=== PATIENT | male | born 1995 | race African-American/Black ===

== ENCOUNTER 2023-03-10 18:53 | Emergency (ER) | payer SELFPAY ==
[~2023-03-10] VITALS: Ht 180.3 cm; Wt 130.0 kg
[2023-03-10 19:15] VITALS: BP 155/80; PULSE 97; RESP 20; TEMP 99.2; O2SAT 98
[2023-03-10] MEDS ORDERED: CLIN300C70 PO ×3 (21:56→22:29)
[2023-03-10] MEDS ORDERED: PRED20TA2 PO ×3 (21:56→22:29)
[2023-03-10] MEDS ORDERED: HYDR-4902 PO ×3 (21:56→22:29)
[2023-03-10] MEDS ORDERED: BENZLOZ2 MT ×3 (21:56→22:29)
== END 2023-03-10 22:08 | disposition home or self-care (01) ==
LOC: ER 18:53
DX: J03.90 Acute tonsillitis, unspecified (principal); Z88.0 Allergy status to penicillin; Z79.1 Long term (current) use of non-steroidal anti-inflammatories (NSAID); Z79.899 Other long term (current) drug therapy

== ENCOUNTER 2023-12-29 23:10 | Inpatient (IN) | payer MEDICAID ==
[~2023-12-29] VITALS: Ht 177.8 cm; Wt 144.0 kg
[~2023-12-29 23:10] MED LIST: BENZLOZ2 MT; CLIN1CAP70 PO; HYDR-4902 PO; PRED20TA2 PO
[2023-12-29] MEDS: ONDANSETRON HCL 4 MG/2 ML VIAL IV ONE (23:30)
[2023-12-30] VITALS (28 sets, daily range): BP systolic 122–180; BP diastolic 60–87; PULSE 99–122; RESP 16–27; TEMP 98.3–99.1; O2SAT 96–100
[2023-12-30 00:05] LABS: Basophils # (auto) 0 10 ^3/uL (0-0.2); Basophils % (auto) 0.3 % (0.0-2.0); Eosinophils # (auto) 0 10 ^3/uL (0-0.8); Hematocrit 51.5 % (41.0-53.0); Hemoglobin 16.7 g/dL (13.5-17.5); Lymphocytes # (auto) 1.8 10 ^3/uL (0.4-5.4); Lymphocytes % (auto) 14.2 % (10.0-50.0); Mean Corpuscular Hemoglobin 26.7 pg (28.0-32.0); Mean Corpuscular Hgb Conc. 32.4 g/dL (32.0-36.0); Mean Corpuscular Volume 82.4 fL (80.0-100.0); Monocytes # (auto) 0.8 10 ^3/uL (0-1.3); Monocytes % (auto) 6.6 % (0.0-12.0); Neutrophils # (auto) 10.2 10 ^3/uL (1.6-8.6); Neutrophils % (auto) 78.9 % (37.0-80.0); Platelet Count (auto) 234 10^3/uL (140-450); Red Blood Cells 6.25 10^6/uL (4.5-5.90); Red Cell Distribution Width 16.7 % (11.8-14.3); White Blood Cell 12.9 10^3/uL (4.4-10.8)
[2023-12-30 00:27] LABS: Alanine Aminotransferase 15 U/L (7-40); Albumin 5.1 g/dL (3.2-4.8); Alkaline Phosphatase 146 U/L (46-116); Anion Gap 23.00001 (5-15); Aspartate Aminotransferase < 8 U/L (13-40); BUN/Creatinine Ratio 7.2 (10.0-20.0); Bilirubin, Total 0.4 mg/dL (0.2-1.0); Blood Urea Nitrogen 14 mg/dL (9-23); Calcium 11.2 mg/dL (8.7-10.4); Chloride 106 mmol/L (98-107); Potassium 4.2 mmol/L (3.5-5.1); Sodium 139 mmol/L (136-145); Total Protein 9.2 g/dL (5.7-8.2)
[2023-12-30 00:33] LABS: Carbon Dioxide < 10 mmol/L (20-30); Glucose 445 mg/dL (74-106)
[2023-12-30 00:43] LABS: Lipase 269 U/L (12-53)
[2023-12-30] MEDS: SODIUM CHLORIDE 0.9% 1,000 ML IV SCH ×4 (00:45→11:20)
[2023-12-30] MEDS ORDERED: DEXTROSE (50%) 50ML SYRG IV PRN ×2 (00:45→03:15)
[2023-12-30] MEDS: SODIUM CHLORIDE 0.9% 1,000 ML IV ONE (01:02)
[2023-12-30 01:15] LABS: Magnesium 2.5 mg/dL (1.6-2.6)
[2023-12-30 01:17] LABS: Phosphorus 4.4 mg/dL (2.4-5.1)
[2023-12-30] MEDS: INSULIN LANTUS (GLARGINE) 1 /0.01ml (100units/ml) SC ONE ×2 (01:17→15:39)
[2023-12-30] MEDS: INSULIN DRIP 100 UNIT/100ML 100 ML IV SCH (01:17)
[2023-12-30] MEDS ORDERED: ACCU-CHEK COMFORT CURVE STRIP VI SCH (01:30)
[2023-12-30] MEDS: ACCU-CHEK COMFORT CURVE STRIP VI SCH (02:37)
[2023-12-30 03:15] LABS: Urine Bacteria None Seen /hpf (None Seen)
[2023-12-30] MEDS ORDERED: NITROGLYCERIN 0.4 MG SL TAB SL PRN (03:15)
[2023-12-30] MEDS ORDERED: MORPHINE SULFATE INJ 2 MG/ml SYRG IV PRN (03:15)
[2023-12-30 03:37] LABS: Urine Blood 1+ /uL (Negative); Urine Clarity Clear (Clear); Urine Color Light-Yellow (Yellow); Urine Hyaline Cast MANY /lpf (0 - 2); Urine Mucus FEW (None Seen); Urine Protein, UAD 2+ (Negative); Urine Specific Gravity 1.028 (1.001-1.035); Urine Urobilinogen Normal (Negative); Urine WBC 1 /hpf (0 - 3); Urine pH 5.5 (5.0-9.0)
[2023-12-30 03:51] LABS: COVID19 ANTIGEN SOFIA FIA NEGATIVE (NEGATIVE); Rapid Influenza A Negative (Negative); Rapid Influenza B Negative (Negative)
[2023-12-30 05:14] LABS: Chloride 114 mmol/L (98-107); Potassium 4.2 mmol/L (3.5-5.1); Sodium 144 mmol/L (136-145)
[2023-12-30 05:15] LABS: Anion Gap 20.00001 (5-15); Calcium 9.7 mg/dL (8.7-10.4)
[2023-12-30 05:20] LABS: BUN/Creatinine Ratio 9.1 (10.0-20.0); Blood Urea Nitrogen 15 mg/dL (9-23)
[2023-12-30 05:33] LABS: Glucose 312 mg/dL (74-106)
[2023-12-30 05:34] LABS: Carbon Dioxide < 10 mmol/L (20-30)
[2023-12-30] MEDS ORDERED: SODIUM BICARB 50mEq/50ml Vial 100 ML in SOD CHL 0.45% 1,000 ML IV ONE (06:45)
[2023-12-30 13:34] LABS: Anion Gap 18 (5-15); Carbon Dioxide 11 mmol/L (20-30); Chloride 116 mmol/L (98-107); Potassium 4.2 mmol/L (3.5-5.1); Sodium 145 mmol/L (136-145)
[2023-12-30 13:35] LABS: Calcium 9.8 mg/dL (8.7-10.4)
[2023-12-30 13:40] LABS: BUN/Creatinine Ratio 9.2 (10.0-20.0); Blood Urea Nitrogen 13 mg/dL (9-23); Glucose 272 mg/dL (74-106)
[2023-12-30] MEDS: ONDANSETRON HCL 4 MG/2 ML VIAL IV PRN (18:19)
[2023-12-30 20:04] LABS: Chloride 119 mmol/L (98-107); Potassium 3.6 mmol/L (3.5-5.1); Sodium 146 mmol/L (136-145)
[2023-12-30 20:05] LABS: Anion Gap 16 (5-15); Carbon Dioxide 11 mmol/L (20-30)
[2023-12-30 20:06] LABS: Calcium 9.5 mg/dL (8.7-10.4)
[2023-12-30 20:10] LABS: BUN/Creatinine Ratio 9.2 (10.0-20.0); Blood Urea Nitrogen 12 mg/dL (9-23); Glucose 245 mg/dL (74-106)
[2023-12-31] VITALS (25 sets, daily range): BP systolic 110–150; BP diastolic 59–85; PULSE 86–111; RESP 6–24; TEMP 97.3–98.6; O2SAT 95–100
[2023-12-31 01:07] LABS: Chloride 119 mmol/L (98-107); Potassium 3.6 mmol/L (3.5-5.1); Sodium 149 mmol/L (136-145)
[2023-12-31 01:08] LABS: Anion Gap 19 (5-15); Calcium 9.6 mg/dL (8.7-10.4); Carbon Dioxide 11 mmol/L (20-30)
[2023-12-31 01:13] LABS: BUN/Creatinine Ratio 8.1 (10.0-20.0); Blood Urea Nitrogen 11 mg/dL (9-23); Glucose 224 mg/dL (74-106)
[2023-12-31] MEDS: SOD CHL 0.45% 1,000 ML IV SCH ×2 (03:58→11:30)
[2023-12-31 05:05] LABS: Basophils # (auto) 0 10 ^3/uL (0-0.2); Eosinophils # (auto) 0.1 10 ^3/uL (0-0.8); Lymphocytes # (auto) 2.3 10 ^3/uL (0.4-5.4); Mean Corpuscular Hemoglobin 26.2 pg (28.0-32.0); White Blood Cell 9.3 10^3/uL (4.4-10.8)
[2023-12-31 05:08] LABS: Basophils % (auto) 0.4 % (0.0-2.0); Eosinophils % (auto) 1.1 % (0.0-7.0); Hematocrit 42.3 % (41.0-53.0); Hemoglobin 13.7 g/dL (13.5-17.5); Lymphocytes % (auto) 24.4 % (10.0-50.0); Mean Corpuscular Hgb Conc. 32.5 g/dL (32.0-36.0); Mean Corpuscular Volume 80.7 fL (80.0-100.0); Monocytes # (auto) 1.2 10 ^3/uL (0-1.3); Monocytes % (auto) 12.7 % (0.0-12.0); Neutrophils # (auto) 5.7 10 ^3/uL (1.6-8.6); Neutrophils % (auto) 61.4 % (37.0-80.0); Nucleated Red Blood Cells % 0.1 %; Platelet Count (auto) 190 10^3/uL (140-450); Red Blood Cells 5.24 10^6/uL (4.5-5.90); Red Cell Distribution Width 16.5 % (11.8-14.3)
[2023-12-31 05:22] LABS: Alanine Aminotransferase 10 U/L (7-40); Albumin 4.2 g/dL (3.2-4.8); Alkaline Phosphatase 104 U/L (46-116); Anion Gap 19 (5-15); Aspartate Aminotransferase < 8 U/L (13-40); Bilirubin, Total 0.6 mg/dL (0.2-1.0); Blood Urea Nitrogen 13 mg/dL (9-23); Calcium 9.5 mg/dL (8.7-10.4); Carbon Dioxide 11 mmol/L (20-30); Chloride 121 mmol/L (98-107); Glucose 226 mg/dL (74-106); Potassium 3.5 mmol/L (3.5-5.1); Sodium 151 mmol/L (136-145); Total Protein 7.2 g/dL (5.7-8.2)
[2023-12-31] MEDS: LACTATED RINGER'S 1,000 ML IV ONE (09:30)
[2023-12-31] MEDS: INSULIN LANTUS (GLARGINE) 1 /0.01ml (100units/ml) SC SCH (10:55)
[2023-12-31 13:21] LABS: Chloride 120 mmol/L (98-107); Sodium 151 mmol/L (136-145)
[2023-12-31 13:22] LABS: Anion Gap 18 (5-15); Calcium 9.4 mg/dL (8.7-10.4); Carbon Dioxide 13 mmol/L (20-30)
[2023-12-31 13:27] LABS: BUN/Creatinine Ratio 8.8 (10.0-20.0); Blood Urea Nitrogen 12 mg/dL (9-23); Glucose 213 mg/dL (74-106)
[2023-12-31] MEDS: POTASSIUM CHLORIDE 40 MEQ in D5W 5% 1,000 ML IV SCH (16:09)
[2023-12-31] MEDS: POTASSIUM CHLORIDE 40 MEQ, LIDOCAINE 1% (LOCAL ANESTH.) 4 ML in SODIUM CHL 0.9% 250 ML IV ONE (16:10)
[2023-12-31 19:42] LABS: Anion Gap 16 (5-15); Carbon Dioxide 14 mmol/L (20-30); Chloride 120 mmol/L (98-107); Potassium 3.6 mmol/L (3.5-5.1); Sodium 150 mmol/L (136-145)
[2023-12-31 19:44] LABS: Calcium 9.4 mg/dL (8.7-10.4)
[2023-12-31 19:48] LABS: Glucose 256 mg/dL (74-106)
[2023-12-31 19:49] LABS: BUN/Creatinine Ratio 8.5 (10.0-20.0); Blood Urea Nitrogen 11 mg/dL (9-23)
[2024-01-01] VITALS (26 sets, daily range): BP systolic 112–175; BP diastolic 45–88; PULSE 84–109; RESP 15–24; TEMP 97.8–98.4; O2SAT 95–100
[2024-01-01 05:16] LABS: Chloride 119 mmol/L (98-107); Potassium 3.3 mmol/L (3.5-5.1); Sodium 151 mmol/L (136-145)
[2024-01-01 05:17] LABS: Anion Gap 15 (5-15); Calcium 9.1 mg/dL (8.7-10.4); Carbon Dioxide 17 mmol/L (20-30)
[2024-01-01 05:22] LABS: Glucose 249 mg/dL (74-106)
[2024-01-01 05:23] LABS: BUN/Creatinine Ratio 7.8 (10.0-20.0); Blood Urea Nitrogen 10 mg/dL (9-23)
[2024-01-01] MEDS: POTASSIUM CHL 20MEQ/100ML 100 ML IV SCH (06:20)
[2024-01-01 12:37] LABS: Chloride 118 mmol/L (98-107)
[2024-01-01 12:38] LABS: Anion Gap 10 (5-15); Carbon Dioxide 18 mmol/L (20-30)
[2024-01-01 12:39] LABS: Calcium 9.3 mg/dL (8.7-10.4)
[2024-01-01 12:43] LABS: BUN/Creatinine Ratio 7.1 (10.0-20.0); Blood Urea Nitrogen 9 mg/dL (9-23); Glucose 313 mg/dL (74-106)
[2024-01-01 12:47] LABS: Sodium 146 mmol/L (136-145)
[2024-01-01] MEDS: SODIUM CHLORIDE 0.9% 1,000 ML IV SCH (13:15)
[2024-01-01 16:59] LABS: Chloride 118 mmol/L (98-107); Potassium 3.5 mmol/L (3.5-5.1); Sodium 149 mmol/L (136-145)
[2024-01-01 17:00] LABS: Anion Gap 15 (5-15); Calcium 9.2 mg/dL (8.7-10.4); Carbon Dioxide 16 mmol/L (20-30)
[2024-01-01 17:05] LABS: BUN/Creatinine Ratio 5.6 (10.0-20.0); Blood Urea Nitrogen 7 mg/dL (9-23); Glucose 280 mg/dL (74-106)
[2024-01-01] MEDS ORDERED: POTASSIUM CHLORIDE 40 MEQ in D5W 5% 1,000 ML IV SCH (17:30)
[2024-01-01] MEDS ORDERED: POTASSIUM CHLORIDE 40 MEQ in SOD CHL 0.45% 1,000 ML IV SCH (17:30)
[2024-01-01] MEDS ORDERED: D5W/SOD CHL 0.45%/KCL 40MEQ 1,000 ML IV PRN (17:50)
[2024-01-01] MEDS: POTASSIUM CHLORIDE 40 MEQ in SOD CHL 0.45% 1,000 ML IV SCH (19:27)
[2024-01-02] VITALS (25 sets, daily range): BP systolic 114–159; BP diastolic 60–96; PULSE 76–108; RESP 14–25; TEMP 97.5–98.7; O2SAT 95–100
[2024-01-02 06:18] LABS: Anion Gap 16 (5-15); Carbon Dioxide 17 mmol/L (20-30); Chloride 117 mmol/L (98-107); Potassium 3.6 mmol/L (3.5-5.1); Sodium 150 mmol/L (136-145)
[2024-01-02 06:19] LABS: Calcium 9.4 mg/dL (8.7-10.4)
[2024-01-02 06:24] LABS: BUN/Creatinine Ratio 5.4 (10.0-20.0); Blood Urea Nitrogen 6 mg/dL (9-23); Glucose 238 mg/dL (74-106)
[2024-01-02] MEDS: PANTOPRAZOLE 40 MG/10 ML VIAL INJ IV ONE (10:40)
[2024-01-02 11:10] LABS: Basophils # (auto) 0 10 ^3/uL (0-0.2); Eosinophils # (auto) 0.2 10 ^3/uL (0-0.8); Hemoglobin 13.6 g/dL (13.5-17.5); Mean Corpuscular Hgb Conc. 33.2 g/dL (32.0-36.0); Nucleated Red Blood Cells % 0.1 %
[2024-01-02 11:14] LABS: Basophils % (auto) 0.4 % (0.0-2.0); Eosinophils % (auto) 2.2 % (0.0-7.0); Lymphocytes % (auto) 36.3 % (10.0-50.0); Mean Corpuscular Hemoglobin 26.4 pg (28.0-32.0); Mean Corpuscular Volume 79.5 fL (80.0-100.0); Monocytes % (auto) 12.3 % (0.0-12.0); Neutrophils # (auto) 4.1 10 ^3/uL (1.6-8.6); Neutrophils % (auto) 48.8 % (37.0-80.0); Platelet Count (auto) 166 10^3/uL (140-450); Red Blood Cells 5.16 10^6/uL (4.5-5.90); Red Cell Distribution Width 16.2 % (11.8-14.3); White Blood Cell 8.4 10^3/uL (4.4-10.8)
[2024-01-02 12:45] LABS: Chloride 119 mmol/L (98-107); Potassium 3.7 mmol/L (3.5-5.1); Sodium 148 mmol/L (136-145)
[2024-01-02 12:46] LABS: Anion Gap 11 (5-15); Calcium 9.4 mg/dL (8.7-10.4); Carbon Dioxide 18 mmol/L (20-30)
[2024-01-02 12:51] LABS: BUN/Creatinine Ratio 5.3 (10.0-20.0); Blood Urea Nitrogen 6 mg/dL (9-23); Glucose 242 mg/dL (74-106)
[2024-01-02] MEDS: SODIUM CHLORIDE 0.9% 250 ML IV ONE (13:02)
[2024-01-02] MEDS: levoFLOXacin 500MG 100 ML IV ONE (13:34)
[2024-01-02 19:24] LABS: Chloride 117 mmol/L (98-107); Potassium 3.8 mmol/L (3.5-5.1); Sodium 149 mmol/L (136-145)
[2024-01-02 19:25] LABS: Anion Gap 17 (5-15); Carbon Dioxide 15 mmol/L (20-30)
[2024-01-02 19:26] LABS: Calcium 9.3 mg/dL (8.7-10.4)
[2024-01-02 19:31] LABS: BUN/Creatinine Ratio 6.4 (10.0-20.0); Blood Urea Nitrogen 7 mg/dL (9-23); Glucose 239 mg/dL (74-106)
[2024-01-03] VITALS (22 sets, daily range): BP systolic 106–147; BP diastolic 59–90; PULSE 71–100; RESP 15–21; TEMP 97.6–98.3; O2SAT 94–98
[2024-01-03 05:15] LABS: Chloride 116 mmol/L (98-107); Potassium 3.4 mmol/L (3.5-5.1); Sodium 149 mmol/L (136-145)
[2024-01-03 05:16] LABS: Anion Gap 17 (5-15); Carbon Dioxide 16 mmol/L (20-30)
[2024-01-03 05:17] LABS: Calcium 9.3 mg/dL (8.7-10.4)
[2024-01-03 05:21] LABS: BUN/Creatinine Ratio 5.4 (10.0-20.0); Blood Urea Nitrogen 6 mg/dL (9-23); Glucose 211 mg/dL (74-106)
[2024-01-03] MEDS: levoFLOXacin 500MG 100 ML IV SCH (08:55)
[2024-01-03] MEDS: PANTOPRAZOLE 40 MG/10 ML VIAL INJ IV SCH (08:55)
[2024-01-03] MEDS ORDERED: DEXTROSE (50%) 50ML SYRG IV PRN (09:45)
[2024-01-03] MEDS: ACCU-CHEK COMFORT CURVE STRIP VI SCH (11:33)
[2024-01-03] MEDS: POTASSIUM CHLORIDE 40 MEQ, LIDOCAINE 1% (LOCAL ANESTH.) 4 ML in SODIUM CHL 0.9% 250 ML IV ONE (11:34)
[2024-01-03 12:14] LABS: Chloride 115 mmol/L (98-107); Potassium 3.4 mmol/L (3.5-5.1); Sodium 146 mmol/L (136-145)
[2024-01-03 12:15] LABS: Anion Gap 11 (5-15); Carbon Dioxide 20 mmol/L (20-30)
[2024-01-03 12:16] LABS: Calcium 9.2 mg/dL (8.7-10.4)
[2024-01-03 12:20] LABS: Blood Urea Nitrogen 8 mg/dL (9-23); Glucose 227 mg/dL (74-106)
[2024-01-03] MEDS: InsuLIN REG 1unit/0.01ml Soln (100units/ml) SC SCH (12:25)
[2024-01-03] MEDS ORDERED: DOCUSATE SOD 100 MG CAP PO PRN (12:45)
[2024-01-03] MEDS: METOCLOPRAMIDE HCL 5MG/ml INJ 2ml VIAL IV SCH (13:57)
[2024-01-04] VITALS (14 sets, daily range): BP systolic 107–142; BP diastolic 61–95; PULSE 71–109; RESP 14–20; TEMP 97.1–98.9; O2SAT 96–99
[2024-01-04 02:01] LABS: Chloride 113 mmol/L (98-107); Potassium 3.7 mmol/L (3.5-5.1); Sodium 145 mmol/L (136-145)
[2024-01-04 02:02] LABS: Anion Gap 15 (5-15); Carbon Dioxide 17 mmol/L (20-30)
[2024-01-04 02:03] LABS: Calcium 9.3 mg/dL (8.7-10.4)
[2024-01-04 02:07] LABS: Glucose 246 mg/dL (74-106)
[2024-01-04 02:11] LABS: BUN/Creatinine Ratio 4.5 (10.0-20.0); Blood Urea Nitrogen < 5 mg/dL (9-23)
[2024-01-04] MEDS ORDERED: POTASSIUM CHLORIDE 40 MEQ in SOD CHL 0.45% 1,000 ML IV SCH (10:15)
[2024-01-04] MEDS ORDERED: DEXTROSE (50%) 50ML SYRG IV PRN (10:15)
[2024-01-04] MEDS: ACCU-CHEK COMFORT CURVE STRIP VI SCH (12:00)
[2024-01-04] MEDS: InsuLIN REG 1unit/0.01ml Soln (100units/ml) SC SCH ×2 (12:02→21:49)
[2024-01-05 01:00] VITALS: BP 133/85; PULSE 89; RESP 17; TEMP 98.5; O2SAT 97
[2024-01-05 05:00] VITALS: BP 125/70; PULSE 89; RESP 16; TEMP 98.3; O2SAT 98
[2024-01-05 08:27] VITALS: BP 147/85; PULSE 78; RESP 20; TEMP 98.1; O2SAT 97
[2024-01-05] MEDS ORDERED: INSU1INJ19 SC (08:43)
[2024-01-05] MEDS ORDERED: INSU1INJ15 SC (08:43)
[2024-01-05] MEDS ORDERED: BLOO1KIT60 XX (08:47)
[2024-01-05] MEDS ORDERED: LANC-347 XX (08:47)
[2024-01-05] MEDS: DOCUSATE ORAL LIQUID 100 MG/10 ML UD PO PRN (09:45)
[2024-01-05] MEDS: INSULIN LANTUS (GLARGINE) 1 /0.01ml (100units/ml) SC SCH (09:49)
[2024-01-05 12:57] VITALS: BP 139/87; PULSE 89; RESP 20; TEMP 97.9; O2SAT 99
[2024-01-05] MEDS: POLYETHYLENE GLYCOL 17 GM PWDR PO ONE (13:23)
[2024-01-05 16:46] VITALS: BP 137/80; PULSE 112; RESP 20; TEMP 97.9; O2SAT 96
== END 2024-01-05 16:25 | disposition home or self-care (01) | DRG 420 ==
LOC: EDBD 23:10 → EDUNIT# 23:10 → ER 23:10 → TELE 12-30 03:11 → ICU CENTRL 12-30 09:17 → DOU IN ICU 12-30 13:44 → TELE-WESTW 01-04 09:56 → WEST WING 01-04 19:14
PROVIDERS: ADMIT Nurse Practitioner; ATTEND Nurse Practitioner Acute Care
DX: E11.10 Type 2 diabetes mellitus with ketoacidosis without coma (principal); N17.0 Acute kidney failure with tubular necrosis; E87.0 Hyperosmolality and hypernatremia; R65.10 Systemic inflammatory response syndrome (SIRS) of non-infectious origin without acute organ dysfunction; E87.8 Other disorders of electrolyte and fluid balance, not elsewhere classified; E86.0 Dehydration; K21.9 Gastro-esophageal reflux disease without esophagitis; Z20.822 Contact with and (suspected) exposure to COVID-19; E66.01 Morbid (severe) obesity due to excess calories; Z68.42 Body mass index [BMI] 45.0-49.9, adult; K76.0 Fatty (change of) liver, not elsewhere classified; E87.6 Hypokalemia; Z79.4 Long term (current) use of insulin; Z83.3 Family history of diabetes mellitus; Z88.0 Allergy status to penicillin
CPT/HCPCS: 36415; 36600; 71045; 76705; 80048; 80053; 81001; 82010; 82805; 82962; 83036; 83690; 83735; 83930; 84100; 85025; 87081; 87426; 87804; 96360; 96361; 96372; 99291; 99292; G0378; J1815; J1956; J2001; J2405; J2470; J3480